=== PATIENT | female | born 1985 | race Caucasian/White ===

== ENCOUNTER → 2016-06-11 | Outpatient (CLI) | payer BC ==
[~2016-06-11] MED LIST: GADOBUTROL 10mMol/10ml INJECTION IV ONE; SALINE FLUSH 10ml SYRINGE ONE
--- NOTE | 2016-06-11 15:35 | DI ---
Indication: ITS.REASON: B99.9 WOUND INFECTION; M79.671 RIGHT FOOT PAIN MRI FOOT RIGHT W/WO CONTRAST: Comparison: None Technique: T1 and T2-weighted image sequences with additional T1-weighted images after intravenous gadovist contrast is utilized. Findings: Patient shows no abnormal bony signal to support the presence of acute osteomyelitis. No fractures are identified. Patient did show some soft tissue cellulitis corresponding to the area of injury. No disruption of the flexor extensor tendons are appreciated. Achilles tendon is intact. Small amount of fluid seen posterior to the ankle. No abnormal enhancing lesions were identified. Impression: 1. Soft tissue cellulitis over the anterior portion of the corresponding to the area of injury. 2. No suggestion of osteomyelitis or acute bony fractures or abnormal bony signal. 3. Flexor and extensor tendons are intact. .
== END ==
LOC: IMA 12:22
PROVIDERS: ATTEND Family Medicine
DX: L03.115 Cellulitis of right lower limb (principal); B99.9 Unspecified infectious disease; M79.671 Pain in right foot
CPT/HCPCS: 73720; A9585